=== PATIENT | female | born 1935 | race Caucasian/White ===

== ENCOUNTER 2016-09-29 08:15 | Day surgery (SDC) | payer MEDICARE, BC ==
[~2016-09-29] VITALS: Ht 160 cm; Wt 92.2 kg
[~2016-09-29 08:15] MED LIST: ATOR40TA49 PO; CORE3.12 OR; DUONI INH; FLUO20 PO; FURO20 PO; KCL20 PO; LATA0.00 OP
[2016-09-29] MEDS ORDERED: CHLORHEXIDINE GLUCONATE 2 % 1 PACK (2 CLOTHS) TOPICAL PRN (08:45)
[2016-09-29] MEDS ORDERED: CHLORHEXIDINE GLUCONATE 2 % 1 PACK (2 CLOTHS) TOPICAL SCH (08:45)
[2016-09-29] MEDS ORDERED: NS 1000 ML IV SCH (08:45)
[2016-09-29] MEDS ORDERED: ceFAZolin 2 GM PREMIX 50 ML IV SCH (08:45)
[2016-09-29] MEDS ORDERED: POVIDONE IODINE 5% (ANTISEPSIS KIT) 4 APPLICATIONS EACH NARE SCH (08:45)
[2016-09-29] MEDS ORDERED: LACTATED RINGER'S 1000 ML IV PRN (08:45)
[2016-09-29] MEDS ORDERED: SODIUM CHLORID 0.9% 500 ML IV PRN (08:45)
[2016-09-29] MEDS ORDERED: POVIDONE IODINE 5% (ANTISEPSIS KIT) 4 APPLICATIONS EACH NARE PRN (08:45)
[2016-09-29] MEDS ORDERED: INSULIN HUMAN REGULAR 1,000 UNITS/10 ML VIAL SQ PRN (08:45)
[2016-09-29] MEDS ORDERED: LORazepam 1 MG TAB SL SCH (08:45)
[2016-09-29] MEDS ORDERED: METOPROLOL TARTRATE 25 MG TAB PO PRN (08:45)
[2016-09-29] MEDS ORDERED: VANCOMYCIN 1000 MG/NS 250 ML IV SCH ×2 (08:45)
[2016-09-29] MEDS ORDERED: ZOLO50TA PO (09:16)
[2016-09-29] MEDS ORDERED: MELO-1 PO (09:16)
[2016-09-29 09:17] VITALS: BP_SYST 128; PULSE 62; RESP 16; O2SAT 95
[2016-09-29 09:30] LABS: AUTOMATED NEUTROPHIL # 3.1 TH/MM3 (1.8-7.7); BASOPHIL % 0.5 % (0.0-2.0); EOSINOPHIL # 0.1 TH/MM3 (0-0.4); EOSINOPHIL % 1.9 % (0.0-4.0); HEMATOCRIT 40.8 % (35.0-46.0); HEMO FLAGS DIFF FINAL; LYMPHOCYTE # 2.3 TH/MM3 (1.0-4.8); MEAN CELL VOLUME 88.3 FL (80.0-100.0); MEAN CORPUSCULAR HEMOGLOBIN 29.5 PG (27.0-34.0); MEAN CORPUSCULAR HGB CONC 33.4 % (32.0-36.0); MONO % 9.8 % (0.0-8.0); NEUT % 50.8 % (16.0-70.0); PLATELET COUNT 202 TH/MM3 (150-450); RED BLOOD COUNT 4.62 MIL/MM3 (4.00-5.30); RED CELL DISTRIBUTION WIDTH 13.3 % (11.6-17.2); WHITE BLOOD COUNT 6.1 TH/MM3 (4.0-11.0)
[2016-09-29 09:39] LABS: APTT (PATIENT) 25.4 SEC (24.3-30.1); PROTHROMBIN TIME - PATIENT 11.3 SEC (9.8-11.6)
[2016-09-29 09:49] LABS: BICARBONATE 27.4 MEQ/L (21.0-32.0); POTASSIUM 4.2 MEQ/L (3.5-5.1)
[2016-09-29] MEDS ORDERED: MIDAZOLAM HCL 5 MG/5 ML VIAL ONE (10:57)
[2016-09-29] MEDS ORDERED: KETAMINE HCL 500 MG/5 ML VIAL ONE (11:03)
[2016-09-29] MEDS ORDERED: VANCOMYCIN 500 MG VIAL ONE (11:10)
[2016-09-29] MEDS ORDERED: LIDOCAINE HCL 2% 50 ML VIAL ONE (11:10)
--- NOTE | 2016-09-29 12:02 | PD.CARD ---
Dual Defib Replacement PROCEDURE DATE: September 29, 2016 NYHA Classification: Class II (Mild) Prevention: Primary Dual Defib Replacement PROCEDURE 1. Dual-chamber defibrillator removal. 2. Dual-chamber defibrillator replacement. 3. Pocket revision. Ms. Kong is a 80 -year-old female with previous history of congestive heart failure, cardiomyopathy, 65.% (July 2015), Defibrillator currently end of life, admitted for generator replacement and device testing. The risks, the nature and the benefit of the procedure clearly stated to her. The risks include pneumothorax, cardiac perforation, stroke and even . She understood and agreed to proceed. PROCEDURE After written informed consent was obtained, the patient was brought to the EP lab where she was prepped and draped in the usual sterile fashion. Conscious sedation was initiated and maintained throughout the procedure by anesthesiologist. Once sedation was verified, the left infraclavicular area was anesthetized with 2% Xylocaine. Using #11 blade scalpel, a 3-cm incision was made over the existing generator. The incision was then taken down deep fascial layers generator exposed. Once exposed, it was removed from the pocket. Scar tissue was removed around the lead pocket revision was performed. Pocket was expanded. Then, the lead was disconnected from the generator and tested. After adequate pacing and sensing thresholds were obtained. The leads were connected to the new generator and placed into the pocket. I decided not to proceed with device testing. I then proceeded with wound closure. The deep fascial layer was approximated using 2-0 Vicryl suture in a continuous fashion. The subcutaneous layer was approximated using 2-0 Vicryl suture in a continuous fashion. The subcuticular layer was approximated using 2-0 Vicryl suture in a continuous fashion. Dermabond adhesive was applied to the wound followed by sterile pressure dressing. There was no complication. The patient tolerated procedure. Blood loss minimal. 1. Explanted hardware: The explanted defibrillator is a Medtronic model number F954IAG, serial number [id number]. That was implanted in 2010. For information about existing lead please refer to previous dictation. 2. Implanted hardware: The implanted defibrillator generator is a Medtronic, model number [id number], serial number [id number]. 3. Threshold: The right atrial pacing threshold in the bipolar mode was 0.75 volt at 0.4 milliseconds. Lead impedance 456 ohms and P-wave at 2.3 mV. The right ventricular pacing threshold in the bipolar mode was 1.0 volts at 0.4 milliseconds. Lead impedance 420 ohms and R-wave at 3.4 mV. 4. Settings: The device is set in a DDD50, upper limit 120 beats per minute. AV delay extended to maximum facilitate A pacing V sensing. Defibrillatory portioned for two zones, one zone for ventricular tachycardia between 160 to 240 bpm beats per minute. Initial therapy consists of one burst of ATP, one ramp, 81%, 10 pulses, 10 ms decremental followed by 20 then 25 and all subsequent shocks at 35 defibrillatory shock. Second zone for ventricular fibrillation above 240 beats per minute, first therapy at 25 and all subsequent shocks at 35 joule defibrillatory shock. CONCLUSIONS Successful defibrillator removal, defibrillator replacement COMMENT/RECOMMENDATIONS The patient will be transferred to telemetry unit. She will be observed, when stable can be discharged home Juany Lira MD September 29, 2016 12:01
--- NOTE | 2016-09-29 12:07 | CATHPROC ---
Sabirmed[facility] HIS Report Study Information Study Number Admission Scheduled Start Study Start [id number] 09/29/2016 09/29/2016 Sep 29 2016 10:40AM Referring Institution Admit Source Facility Department 1 Other [facility] Lab Physician and Clinical Staff Initial Juany Chaparro Gear Changer Tarsha Gan RN Other Anesthesia, FOSTER CARE CASE MANAGER Recorder Waleska Ferrell,RT(R) TECH2 Scrub CamueTiffany taylor,OSTEOPATHIC RESIDENT X-Ray Dany Morgan,RT(R) Equipment Time Commercial Loan Underwriter Description Size Mfg Part Number Used/Scraped DERMABOND, ADHESIVE SKIN 10:41 CORDIS/PACER * [id number] Used GLUE MINI 10:41 Sova [employer] SUTURE, STRIP PLUS 1/2" * [id number] Used 10:41 Sova PACER [place], LIMB * [id number] Used 10:41 Sova PACER PACK, PACER CUSTOM * [id number] Used 11:24 Needle Sponge Count 1 1 Used 11:19 Needle Sponge Count 2 22 Used 11:20 Needle Sponge Count 2 2 Used 11:20 Needle Sponge Count 20 200 Used 11:20 Needle Sponge Count 20 20 Used SUTURE, 2-0 VICRYL [CT1] ([id number]) 10:41 [employer],WARM AIR CCL * [id number] Used [place] PAD, ELECTROSURGICAL 10:41 * [id number] Used SURGICAL GROUNDING ORANGE DEFIBRILLATOR, EVERA MRI XT 11:10 VITATRON MEDTRONIC DDE-DDDR [id number] Used 10:41 VITATRON MEDTRONIC PLASMABLADE, PEAD 3.0S * [id number] Used Equipment Model, Serial, Lot Number and Expiration Data Description Model Number Serial Number Lot Number Expiration Date DEFIBRILLATOR, EVERA MRI XT [id number] 02-09-2018 Labs Hgb (g/dl) Hct (%) RBC (MIL/MM3) WBC (l/cumm) Platelets (thousands) 12.00-18.00 37.00-55.00 4.80-6.20 4.80-10.80 140.00-450.00 13.6 40.8 4.6 6.1 202 Glucose (mg/dl) BUN (mg/dl) Creatinine (mg/dl) BUN:Creatinine (1:x) 60.00-110.00 8.00-20.00 0.10-9.00 10.00-20.00 97 21 0.7 30 Na (meq/l) K (meq/l) Cl (meq/l) CO2 (mmol/L) Ca (mg/dl) 138.00-146.00 3.80-5.10 101.00-111.00 23.00-30.00 9.00-10.50 140 4.2 104 27.4 9.2 PT (sec) INR (PTT:PT) 9.40-11.40 0.50-2.00 11.3 1 Medication Medication Total Dose (Bolus/Oral) Medication Total Dosage/Unit 2% XYLOCAINE 50 mL Medications (Bolus/Oral) Medication Time Given Dosage/Unit Administered By Reason 2% XYLOCAINE 09/29/2016 11:23:15 AM 50 mL Juany Lira For pain 50 mL 2% XYLOCAINE given in lab by Juany Lira in Left shoulder via Subcutaneous. Ordered by Juany Lira. Reason: For pain. Medication (Drip) Medication Time Given Dosage/Unit Concentration/Unit Diluent (ml) Solution ANCEF 09/29/2016 11:04:48 AM 2 g 2 g ANCEF given in lab by Anesthesia, FOSTER CARE CASE MANAGER in Right Forearm via Peripheral IV. Ordered by Pee Lira Reason: As per physicians verbal order. IV Solutions 09/29/2016 11:01:37 AM 0 mL (IV) 500 NaCl .9 IV Solutions given pre op by Anesthesia, FOSTER CARE CASE MANAGER in Right Forearm via Peripheral IV. Pump/Drip Flow = 20 ml/hr using NaCl .9. Ordered by Juany Lira. IV Solutions 09/29/2016 11:02:46 AM 0 mL (IV) 500 NaCl .9 IV Solutions given pre op by Anesthesia, FOSTER CARE CASE MANAGER in Right Forearm via Peripheral IV. Pump/Drip Flow = 20 ml/hr using NaCl .9. Ordered by Juany Lira. VANCOMYCIN DRIP 09/29/2016 11:05:16 AM 1 g 1 g VANCOMYCIN DRIP given in lab by Anesthesia, FOSTER CARE CASE MANAGER in Right Forearm via Peripheral IV. Ordered by Juany Montez. Reason: As per physicians verbal order. Initial Case Assessment Cardiovascular HR Rhythm NIBP Chest Pain 45 sb 179/74 0 Edema Present Skin color Skin None Normal Warm Dry Neurological State Oriented to time-place- Alert Moves all extremities person Respiration - General Respiration Rate SpO2 (%) (B/min) 18 100 Final Case Assessment Cardiovascular HR Rhythm NIBP Chest Pain 67 sr 136/67 0 Edema Present Skin color Skin None Normal Warm Dry Neurological State Oriented to time-place- Alert Moves all extremities person Respiration - General Respiration Rate SpO2 (%) (B/min) 15 99 Chronological Log Time Study Chronological Log 10:45:00 Patient arrived via Bed. 10:46:41 Patient Name, D.O.B, / Armband Verified By R.N. 11:00:29 Pre-op and post- op instructions given; patient acknowledges understanding of instructions. 11:00:30 Anesthesia at bedside. Assumes care of patient. Paul Vergara FOSTER CARE CASE MANAGER 11:00:39 Presedation assessment performed by Supervising Nurse RN. 11:00:40 Patient has been NPO for More than 6Hrs. 11:00:41 Skin Breakdown-none per patient 11:00:51 Patient Warmer Placed on the Table. 11:00:52 Disposable Defibrillator Pads Placed On Patient. 11:00:54 Alcides Prominences Protected 11:00:56 A # 20 IV was noted in the Forearm (right). Grade = 0 11:01:18 A # 22 IV was noted in the Antecubital (left). Grade = 0 IV Solutions given pre op by Anesthesia, FOSTER CARE CASE MANAGER in Right Forearm via Peripheral IV. Pump/Drip Dameon w = 20 ml/hr using 11:01:37 NaCl .9. Ordered by Juany Lira. IV Solutions given pre op by Anesthesia, FOSTER CARE CASE MANAGER in Right Forearm via Peripheral IV. Pump/Drip Dameon w = 20 ml/hr using 11:02:46 NaCl .9. Ordered by Juany Lira. 11:03:27 History and physical on the chart or being dictated. Assessment: Initial Case, HR=45 BPM, Rhythm=sb, JQYF=883/74 mmhg, Chest Pain=0, Edema=None, Col or=Normal, Skin = Warm, Dry 11:03:29 Neurological: State=Alert, Ox3, RAMIREZ Respiration: Resp=18 B/min, JnG5=132 % 11:04:05 Table restraints applied according to hospital policy 11:04:23 Lead placement verified under fluoroscopy 11:04:29 2% CHLORHEXIDINE GLUCONATE WASH AND NASAL SWIPE DONE PRIOR TO PROCEDURE. 11:04:37 Bovie ground pad applied to: Right hip 2 g ANCEF given in lab by Anesthesia, FOSTER CARE CASE MANAGER in Right Forearm via Peripheral IV. Ordered by Juany Lira. Reason: As 11:04:48 per physicians verbal order. 1 g VANCOMYCIN DRIP given in lab by Anesthesia, FOSTER CARE CASE MANAGER in Right Forearm via Peripheral IV. Ordere d by Juany Lira. 11:05:16 Reason: As per physicians verbal order. 11:07:04 Left Upper Chest Prepped Times Two. 11:15:15 MD arrived. First Sponge And Instrument Count Done by Tarsha Gan RN. 11:17:30 Hypo's: 1, Sponges: 20, Bovie/scratch: 2 Sutures: 2, Blades: 1, Instruments: 26, Syveck Patches: 0 Time Out. Correct patient, procedure, procedure equipment, site and side verified with physicia n present. Time 11:21:31 concurred by MD, individual staff and FOSTER CARE CASE MANAGER. Time Out #2 - Consents verified, patient in correct position, all results are labled and displa yed, safety precautions 11:21:35 taken, antibiotics administered. Time out concurred by MD, individual staff and FOSTER CARE CASE MANAGER in procedu re 11:22:42 Case Start 50 mL 2% XYLOCAINE given in lab by Juany Lira in Left shoulder via Subcutaneous. Ordered by Juany Lira. 11:23:15 Reason: For pain. 11:23:43 Surgical Incision Made. 11:23:51 A pocket was created at the L Upper Chest. 11:24:01 A device was explanted. 11:27:31 A DEFIBRILLATOR, EVERA MRI XT DR DDE-DDDR was connected and placed in the pocket. 11:30:01 GENERATOR CHANGE was performed. GENERATOR CHANGE 11:30:16 A ICD (Dual) GENERATOR CHANGE 11:31:13 Pocket flushed with antibiotic solution Second Sponge And Instrument Count Done by Tarsha Gan RN. 11:33:35 Hypo's: 1, Sponges: 20, Bovie/scratch: 2 Sutures: ~SUTURE~, Blades: 1, Instruments: 26, Syveck Patches: 0 11:37:51 The pocket was closed. The Final Sponge And Instrument Count Done by Tarsha Gan RN. 11:39:10 Hypo's: 1, Sponges: 20, Bovie/scratch: 2 Sutures: 2, Blades: 1, Instruments: 26, Syveck Patches: 0 11:45:20 Steri-strips and a sterile dressing applied to site. 11:45:21 Case End 11:47:05 Bedside Report will be given. 11:47:17 No case complications noted. 11:47:18 Cine recording checked. 11:47:26 DOCU called. Spoke to TOOLMAN Assessment: Final Case, HR=67 BPM, Rhythm=sr, HDSB=157/67 mmhg, Chest Pain=0, Edema=None, Color =Normal, Skin = Warm, Dry 11:48:00 Neurological: State=Alert, Ox3, RAMIREZ Respiration: Resp=15 B/min, SpO2=99 % 11:48:24 Defibrillator and ground pads removed. Skin intact. 11:48:45 Please see anesthesia notes for vitals and all medications given during the procedure. 11:58:30 Patient moved to [facility] End Study - Contrast Media Used In Study Contrast Total Opened (mL) Total Used (mL) Total Wasted (mL) Unspecified 0 0 0 End Study - Maximum Contrast Load Max Contrast Load (mL) 658.4 End Study - Radiation Exposure Fluoro Time (minutes) 0.0 End Study - Patient Disposition Complications Transferred To No Outpatient Bed
[2016-09-29] MEDS ORDERED: CEPH-460 PO (12:08)
[2016-09-29] MEDS ORDERED: ACET300T2 PO (12:08)
[2016-09-29] MEDS ORDERED: ONDANSETRON HCL 4 MG/2 ML VIAL IV PRN (12:15)
[2016-09-29] MEDS ORDERED: ACETAMINOPHEN/CODEINE 300 MG/30 MG TAB PO PRN ×2 (12:15)
--- NOTE | 2016-09-29 18:00 | EKG ---
Date Performed: 09/29/2016 Time Performed: 09:03:26 PTAGE: 80 years EKG: Possible ectopic atrial rhythm Demand atrial pacing Poor R wave progression - probable norm al variant Inferior and anterior ST-T changes are nonspecific Low QRS voltages in precordial leads Ab normal ECG Compared to prior tracing no significant change. PREVIOUS TRACING : 11/05/2014 17.25 DOCTOR: Mateo Hardwick Interpretating Date/Time 09/29/2016 17:59:10
== END 2016-09-29 15:17 | disposition home or self-care (01) ==
LOC: HDOC 08:15 → HDIC 08:15 → HDOC 15:17
PROVIDERS: ATTEND Internal Medicine Interventional Cardiology
DX: Z45.02 Encounter for adjustment and management of automatic implantable cardiac defibrillator (principal); I49.5 Sick sinus syndrome; I11.0 Hypertensive heart disease with heart failure; I50.9 Heart failure, unspecified; I49.2 Junctional premature depolarization; I42.9 Cardiomyopathy, unspecified; I47.2 Ventricular tachycardia; J44.9 Chronic obstructive pulmonary disease, unspecified
CPT/HCPCS: 00530; 33263; 80048; 85025; 85610; 85730; 86850; 86900; 86901; 93005; C1721; J2250; J3370